=== PATIENT | female | born 1950 | race Caucasian/White ===

== ENCOUNTER 2019-01-25 18:13 | Inpatient (IN) | payer MEDICAID ==
[2019-01-25 18:45] LABS: ADD MAN DIFF? NO
[2019-01-25 18:48] LABS: BASOPHILS % 0.4 % (0.0-2.0); EOSINOPHILS # 0.1 10^3/ul (0.0-0.5); EOSINOPHILS % 1.3 % (0.0-7.0); HEMOGLOBIN 12.1 g/dl (12.0-16.0); LYMPHOCYTES # 3.7 10^3/ul (0.8-2.9); LYMPHOCYTES % 41.4 % (15.0-51.0); MEAN CORPUSCULAR HEMOGLOBIN 30.9 pg (29.0-33.0); MEAN CORPUSCULAR HGB CONC 32.7 g/dl (32.0-37.0); MEAN CORPUSCULAR VOLUME 94.6 fl (82.0-101.0); MONOCYTE # 0.7 10^3/ul (0.3-0.9); MONOCYTES % 7.3 % (0.0-11.0); NEUTROPHIL # 4.4 10^3/ul (1.6-7.5); NEUTROPHILS % 49.4 % (39.0-77.0); PLATELET COUNT 264 10^3/UL (140-415); RED BLOOD COUNT 3.91 10^6/ul (4.20-5.40); RED CELL DISTRIBUTION WIDTH 12.2 % (11.5-14.5)
[2019-01-25] MEDS: KETOROLAC 15 MG INJ IV (18:58)
[2019-01-25] MEDS: DIAZEPAM 10 MG/2 ML SYG IV (18:58)
[2019-01-25 19:05] LABS: ALANINE AMINOTRANSFERASE 34 IU/L (13-69); ALBUMIN 4.9 g/dl (3.3-4.9); ALBUMIN/GLOBULIN RATIO 1.19; ALKALINE PHOSPHATASE 62 IU/L (42-121); ANION GAP 12 (5-13); ASPARTATE AMINO TRANSFERASE 30 IU/L (15-46); BILIRUBIN,INDIRECT 0.5 mg/dl (0-1.1); BILIRUBIN,TOTAL 0.5 mg/dl (0.2-1.3); BLOOD UREA NITROGEN 33 mg/dl (7-20); CALCIUM 10.2 mg/dl (8.4-10.2); CARBON DIOXIDE 26 mmol/L (21-31); CHLORIDE 102 mmol/L (97-110); CREATININE 0.78 mg/dl (0.44-1.00); Estimated GFR > 60 mL/min (>60); GLUCOSE 144 mg/dl (70-220); LIPASE 189 U/L (23-300); POTASSIUM 5.3 mmol/L (3.5-5.1); SODIUM 140 mmol/L (135-144)
[2019-01-25 19:09] LABS: ADD UMIC YES; UR ASCORBIC ACID NEGATIVE (NEGATIVE); UR BILIRUBIN (Dip) NEGATIVE (NEGATIVE); UR BLOOD (Dip) NEGATIVE (NEGATIVE); UR CLARITY SLIGHTLY CLOUDY (CLEAR); UR COLOR YELLOW (YELLOW); UR GLUCOSE (Dip) NEGATIVE (NEGATIVE); UR KETONES (Dip) NEGATIVE (NEGATIVE); UR LEUKOCYTE ESTERASE (Dip) 2+ Leu/ul (NEGATIVE); UR MUCUS FEW /HPF (NONE SEEN); UR NITRITE (Dip) NEGATIVE (NEGATIVE); UR RBC 1 /HPF (0-5); UR SPECIFIC GRAVITY (Dip) 1.023 (1.003-1.030); UR SQUAMOUS EPITHELIAL CELL FEW /HPF (FEW); UR TOTAL PROTEIN (Dip) 1+ mg/dl (NEGATIVE); UR UROBILINOGEN (Dip) NEGATIVE (NEGATIVE); UR WBC 15 /HPF (0-5)
[2019-01-25 19:17] LABS: TROPONIN-I < 0.012 ng/ml (0.000-0.120)
[2019-01-25] MEDS: CEFTRIAXONE 1 GM/50 ML (PMX) 50 ML IVPB (19:42)
[2019-01-25] MEDS: SOD CHLORIDE 0.9% 1,000 ML IV (19:42)
[2019-01-25] MEDS: HYDROmorphONE 0.5 MG/0.5 ML SYG IV (21:17)
[2019-01-25] MEDS ORDERED: ACETAMINOPHEN 325 MG TAB PO (22:30)
[2019-01-25] MEDS ORDERED: ONDANSETRON 4 MG INJ IV ×2 (22:30→23:00)
[2019-01-25] MEDS ORDERED: BISACODYL (EC) 5 MG TAB PO (23:00)
[2019-01-25] MEDS ORDERED: NITROGLYCERIN (SL) 0.4 MG TAB SL (23:00)
[2019-01-25] MEDS ORDERED: NACL 0.9% 3 ML SYG IV (23:00)
[2019-01-25] MEDS: METOCLOPRAMIDE 10 MG INJ IV (23:35)
[2019-01-25 23:40] LABS: D-DIMER 563.92 ng/ml (<460)
[2019-01-25 23:42] LABS: B-TYPE NATRIURETIC PEPTIDE 260 PG/ML (0-125)
[2019-01-26 00:40] LABS: CREATINE KINASE 40 IU/L (23-200)
[2019-01-26 00:53] LABS: CK INDEX 1.4; CK-MB 0.54 ng/ml (0.0-2.4); TROPONIN-I < 0.012 ng/ml (0.000-0.120)
[2019-01-26] MEDS: HYDROmorphONE 1 MG/ML SYG IV ×2 (02:04→18:32)
[2019-01-26] MEDS: CYCLOBENZAPRINE 10 MG TAB PO (03:31)
[2019-01-26] MEDS: ENOXAPARIN 80 MG/0.8 ML SYG SC (03:35)
[2019-01-26] MEDS: CIPROFLOXACIN 250 MG TAB PO ×2 (06:32→18:31)
[2019-01-26] MEDS: PANTOPRAZOLE (EC) 40 MG TAB PO ×2 (06:32→21:01)
[2019-01-26 07:16] LABS: ADD MAN DIFF? NO
[2019-01-26 07:23] LABS: BASOPHIL # 0.1 10^3/ul (0.0-0.1); BASOPHILS % 0.6 % (0.0-2.0); EOSINOPHILS # 0.1 10^3/ul (0.0-0.5); EOSINOPHILS % 1.1 % (0.0-7.0); HEMATOCRIT 36.7 % (37.0-47.0); HEMOGLOBIN 11.8 g/dl (12.0-16.0); LYMPHOCYTES # 2.9 10^3/ul (0.8-2.9); LYMPHOCYTES % 36.5 % (15.0-51.0); MEAN CORPUSCULAR HEMOGLOBIN 30.5 pg (29.0-33.0); MEAN CORPUSCULAR HGB CONC 32.2 g/dl (32.0-37.0); MEAN CORPUSCULAR VOLUME 94.8 fl (82.0-101.0); MEAN PLATELET VOLUME 10.3 fl (7.4-10.4); MONOCYTE # 0.5 10^3/ul (0.3-0.9); MONOCYTES % 6.5 % (0.0-11.0); NEUTROPHIL # 4.3 10^3/ul (1.6-7.5); NEUTROPHILS % 55.2 % (39.0-77.0); PLATELET COUNT 240 10^3/UL (140-415); RED BLOOD COUNT 3.87 10^6/ul (4.20-5.40); RED CELL DISTRIBUTION WIDTH 12.1 % (11.5-14.5)
[2019-01-26 07:23] LABS: WHITE BLOOD COUNT 7.9 10^3/ul (4.8-10.8)
[2019-01-26 07:32] LABS: HEMOGLOBIN A1C 7.1 % (0-5.9)
[2019-01-26 07:41] LABS: ALANINE AMINOTRANSFERASE 32 IU/L (13-69); ALBUMIN 4.4 g/dl (3.3-4.9); ALBUMIN/GLOBULIN RATIO 1.15; ALKALINE PHOSPHATASE 61 IU/L (42-121); ANION GAP 9 (5-13); ASPARTATE AMINO TRANSFERASE 25 IU/L (15-46); BILIRUBIN,INDIRECT 0.5 mg/dl (0-1.1); BILIRUBIN,TOTAL 0.5 mg/dl (0.2-1.3); BLOOD UREA NITROGEN 29 mg/dl (7-20); CALCIUM 9.8 mg/dl (8.4-10.2); CARBON DIOXIDE 31 mmol/L (21-31); CHLORIDE 100 mmol/L (97-110); CHOL/HDL RATIO 4.7 RATIO; CHOLESTEROL 211 mg/dl (100-200); CREATININE 0.65 mg/dl (0.44-1.00); Estimated GFR > 60 mL/min (>60); GLUCOSE 115 mg/dl (70-220); HDL CHOLESTEROL 44 mg/dl (35-98); LDL CHOLESTEROL,CALCULATED 118 mg/dl; MAGNESIUM 1.6 mg/dl (1.7-2.5); SODIUM 140 mmol/L (135-144); TOTAL PROTEIN 8.2 g/dl (6.1-8.1); TRIGLYCERIDES 244 mg/dl (0-149)
[2019-01-26 07:47] LABS: CREATINE KINASE 33 IU/L (23-200)
[2019-01-26 07:52] LABS: C-REACTIVE PROTEIN 0.9 mg/dl (0.0-0.9)
[2019-01-26 07:55] LABS: CK INDEX 1.5; CK-MB 0.49 ng/ml (0.0-2.4); TROPONIN-I < 0.012 ng/ml (0.000-0.120)
[2019-01-26] MEDS: FLUOXETINE 10 MG CAP PO (08:34)
[2019-01-26] MEDS: CLOPIDOGREL 75 MG TAB PO (08:35)
[2019-01-26] MEDS: ASPIRIN (EC) 81 MG TAB PO (08:35)
[2019-01-26] MEDS: AMLODIPINE 10 MG TAB PO (08:35)
[2019-01-26] MEDS ORDERED: ENOXAPARIN 40 MG/0.4 ML SYG SC (09:00)
[2019-01-26 09:42] LABS: ERYTHROCYTE SEDIMENTATION RATE 90 mm/Hr (0-30)
[2019-01-26] MEDS: SOD CHLORIDE 0.9% 100 ML (09:56)
[2019-01-26] MEDS: IOHEXOL 100 ML (09:56)
[2019-01-26] MEDS: MAGNESIUM SULFATE 2 GM/50 ML 50 ML IVPB ×2 (10:22→13:25)
[2019-01-26] MEDS: SUCRALFATE (100 MG/ML) 10ML CUP PO ×2 (18:31→21:01)
[2019-01-26] MEDS ORDERED: ATORVASTATIN 40 MG TAB PO (21:00)
[2019-01-26] MEDS: ACETAMINOPHEN 325 MG TAB PO (21:21)
[2019-01-27] MEDS: HYDROmorphONE 1 MG/ML SYG IV ×3 (03:51→14:27)
[2019-01-27] MEDS: CIPROFLOXACIN 250 MG TAB PO ×2 (05:55→17:34)
[2019-01-27 07:24] LABS: ADD MAN DIFF? NO
[2019-01-27 07:27] LABS: BASOPHILS % 0.5 % (0.0-2.0); EOSINOPHILS # 0.1 10^3/ul (0.0-0.5); EOSINOPHILS % 1.5 % (0.0-7.0); HEMATOCRIT 35.5 % (37.0-47.0); HEMOGLOBIN 11.8 g/dl (12.0-16.0); LYMPHOCYTES # 2.9 10^3/ul (0.8-2.9); LYMPHOCYTES % 35.7 % (15.0-51.0); MEAN CORPUSCULAR HEMOGLOBIN 31.1 pg (29.0-33.0); MEAN CORPUSCULAR HGB CONC 33.2 g/dl (32.0-37.0); MEAN CORPUSCULAR VOLUME 93.4 fl (82.0-101.0); MEAN PLATELET VOLUME 10.2 fl (7.4-10.4); MONOCYTE # 0.5 10^3/ul (0.3-0.9); MONOCYTES % 6.3 % (0.0-11.0); NEUTROPHIL # 4.5 10^3/ul (1.6-7.5); NEUTROPHILS % 55.8 % (39.0-77.0); PLATELET COUNT 236 10^3/UL (140-415); RED CELL DISTRIBUTION WIDTH 11.9 % (11.5-14.5)
[2019-01-27 07:27] LABS: WHITE BLOOD COUNT 8.1 10^3/ul (4.8-10.8)
[2019-01-27 07:58] LABS: MAGNESIUM 1.9 mg/dl (1.7-2.5)
[2019-01-27 07:58] LABS: PHOSPHORUS 5.3 mg/dl (2.5-4.9)
[2019-01-27 08:02] LABS: ANION GAP 10 (5-13); BLOOD UREA NITROGEN 31 mg/dl (7-20); CALCIUM 9.9 mg/dl (8.4-10.2); CARBON DIOXIDE 28 mmol/L (21-31); CHLORIDE 99 mmol/L (97-110); CREATININE 0.72 mg/dl (0.44-1.00); Estimated GFR > 60 mL/min (>60); GLUCOSE 112 mg/dl (70-220); SODIUM 137 mmol/L (135-144)
[2019-01-27] MEDS: SUCRALFATE (100 MG/ML) 10ML CUP PO ×4 (08:10→20:41)
[2019-01-27] MEDS: FLUOXETINE 10 MG CAP PO (08:10)
[2019-01-27] MEDS: ASPIRIN (EC) 81 MG TAB PO (08:10)
[2019-01-27] MEDS: ENOXAPARIN 40 MG/0.4 ML SYG SC (08:10)
[2019-01-27] MEDS: PANTOPRAZOLE (EC) 40 MG TAB PO ×2 (08:11→20:42)
[2019-01-27] MEDS: AMLODIPINE 10 MG TAB PO (08:11)
[2019-01-27] MEDS: CLOPIDOGREL 75 MG TAB PO (08:11)
[2019-01-27] MEDS: SOD CHLORIDE 0.9% 100 ML (16:39)
[2019-01-27] MEDS: IOHEXOL 300MG/ML 150 ML BTL (16:39)
[2019-01-27] MEDS: METOCLOPRAMIDE 10 MG INJ IV (17:34)
[2019-01-27] MEDS: BARIUM SULF 2% 450 ML BTL (BERRY SMOOTHIE) PO (18:41)
[2019-01-28] MEDS: METOCLOPRAMIDE 10 MG INJ IV ×4 (00:29→18:00)
[2019-01-28] MEDS: CIPROFLOXACIN 250 MG TAB PO (05:20)
[2019-01-28 06:53] LABS: ADD MAN DIFF? NO
[2019-01-28 06:57] LABS: BASOPHIL # 0.1 10^3/ul (0.0-0.1); BASOPHILS % 0.9 % (0.0-2.0); EOSINOPHILS # 0.1 10^3/ul (0.0-0.5); EOSINOPHILS % 1.5 % (0.0-7.0); HEMATOCRIT 37.9 % (37.0-47.0); HEMOGLOBIN 12.4 g/dl (12.0-16.0); LYMPHOCYTES # 3.6 10^3/ul (0.8-2.9); LYMPHOCYTES % 45.5 % (15.0-51.0); MEAN CORPUSCULAR HEMOGLOBIN 30.5 pg (29.0-33.0); MEAN CORPUSCULAR HGB CONC 32.7 g/dl (32.0-37.0); MEAN CORPUSCULAR VOLUME 93.3 fl (82.0-101.0); MEAN PLATELET VOLUME 10.3 fl (7.4-10.4); MONOCYTE # 0.6 10^3/ul (0.3-0.9); MONOCYTES % 7.6 % (0.0-11.0); NEUTROPHIL # 3.5 10^3/ul (1.6-7.5); NEUTROPHILS % 44.2 % (39.0-77.0); PLATELET COUNT 269 10^3/UL (140-415); RED BLOOD COUNT 4.06 10^6/ul (4.20-5.40); RED CELL DISTRIBUTION WIDTH 11.9 % (11.5-14.5)
[2019-01-28 06:57] LABS: WHITE BLOOD COUNT 7.9 10^3/ul (4.8-10.8)
[2019-01-28 07:18] LABS: ALANINE AMINOTRANSFERASE 37 IU/L (13-69); ALBUMIN 4.3 g/dl (3.3-4.9); ALKALINE PHOSPHATASE 61 IU/L (42-121); ASPARTATE AMINO TRANSFERASE 30 IU/L (15-46); BILIRUBIN,INDIRECT 0.4 mg/dl (0-1.1); BILIRUBIN,TOTAL 0.4 mg/dl (0.2-1.3); TOTAL PROTEIN 8.3 g/dl (6.1-8.1)
[2019-01-28 07:19] LABS: PHOSPHORUS 5.1 mg/dl (2.5-4.9)
[2019-01-28 07:19] LABS: MAGNESIUM 1.8 mg/dl (1.7-2.5)
[2019-01-28 07:21] LABS: ANION GAP 12 (5-13); BLOOD UREA NITROGEN 29 mg/dl (7-20); CALCIUM 10.1 mg/dl (8.4-10.2); CARBON DIOXIDE 29 mmol/L (21-31); CHLORIDE 98 mmol/L (97-110); CREATININE 0.81 mg/dl (0.44-1.00); Estimated GFR > 60 mL/min (>60); GLUCOSE 147 mg/dl (70-220); POTASSIUM 4.7 mmol/L (3.5-5.1); SODIUM 139 mmol/L (135-144)
[2019-01-28] MEDS: POLYETHYLENE GLYCOL 17 GM PACKET PO (08:18)
[2019-01-28] MEDS: CLOPIDOGREL 75 MG TAB PO (08:19)
[2019-01-28] MEDS: SUCRALFATE (100 MG/ML) 10ML CUP PO ×4 (08:19→19:58)
[2019-01-28] MEDS: ASPIRIN (EC) 81 MG TAB PO (08:19)
[2019-01-28] MEDS: AMLODIPINE 10 MG TAB PO (08:19)
[2019-01-28] MEDS: FLUOXETINE 10 MG CAP PO (08:19)
[2019-01-28] MEDS: PANTOPRAZOLE (EC) 40 MG TAB PO ×2 (08:19→19:58)
[2019-01-28] MEDS: morphine 2 MG INJ IV (08:33)
[2019-01-28] MEDS: ENOXAPARIN 40 MG/0.4 ML SYG SC (09:00)
[2019-01-28] MEDS: HYDROmorphONE 1 MG/ML SYG IV (13:43)
[2019-01-28] MEDS: metFORMIN 500 MG TAB PO (18:19)
[2019-01-28] MEDS: LORAZEPAM 2 MG INJ IV (22:06)
[2019-01-29] MEDS: DOCUSATE SODIUM 100 MG CAP PO (05:27)
[2019-01-29 06:30] LABS: ADD MAN DIFF? NO
[2019-01-29 06:33] LABS: WHITE BLOOD COUNT 6.9 10^3/ul (4.8-10.8)
[2019-01-29 06:33] LABS: BASOPHIL # 0.1 10^3/ul (0.0-0.1); BASOPHILS % 0.7 % (0.0-2.0); EOSINOPHILS # 0.1 10^3/ul (0.0-0.5); EOSINOPHILS % 1.9 % (0.0-7.0); HEMATOCRIT 37.3 % (37.0-47.0); HEMOGLOBIN 12.2 g/dl (12.0-16.0); LYMPHOCYTES # 2.7 10^3/ul (0.8-2.9); LYMPHOCYTES % 39.4 % (15.0-51.0); MEAN CORPUSCULAR HEMOGLOBIN 30.7 pg (29.0-33.0); MEAN CORPUSCULAR HGB CONC 32.7 g/dl (32.0-37.0); MEAN CORPUSCULAR VOLUME 93.7 fl (82.0-101.0); MEAN PLATELET VOLUME 9.9 fl (7.4-10.4); MONOCYTE # 0.6 10^3/ul (0.3-0.9); MONOCYTES % 8.6 % (0.0-11.0); NEUTROPHIL # 3.4 10^3/ul (1.6-7.5); NEUTROPHILS % 49.3 % (39.0-77.0); PLATELET COUNT 242 10^3/UL (140-415); RED BLOOD COUNT 3.98 10^6/ul (4.20-5.40)
[2019-01-29 06:57] LABS: MAGNESIUM 1.8 mg/dl (1.7-2.5)
[2019-01-29 06:57] LABS: PHOSPHORUS 4.4 mg/dl (2.5-4.9)
[2019-01-29 06:58] LABS: ANION GAP 11 (5-13); BLOOD UREA NITROGEN 29 mg/dl (7-20); CALCIUM 10.1 mg/dl (8.4-10.2); CARBON DIOXIDE 29 mmol/L (21-31); CHLORIDE 99 mmol/L (97-110); CREATININE 0.89 mg/dl (0.44-1.00); Estimated GFR > 60 mL/min (>60); GLUCOSE 157 mg/dl (70-220); POTASSIUM 4.6 mmol/L (3.5-5.1); SODIUM 139 mmol/L (135-144)
[2019-01-29] MEDS: ASPIRIN (EC) 81 MG TAB PO (09:14)
[2019-01-29] MEDS: CLOPIDOGREL 75 MG TAB PO (09:14)
[2019-01-29] MEDS: PANTOPRAZOLE (EC) 40 MG TAB PO ×2 (09:16→20:29)
[2019-01-29] MEDS: POLYETHYLENE GLYCOL 17 GM PACKET PO (09:16)
[2019-01-29] MEDS: FLUOXETINE 10 MG CAP PO (09:16)
[2019-01-29] MEDS: ENOXAPARIN 40 MG/0.4 ML SYG SC (09:26)
[2019-01-29] MEDS: AMLODIPINE 10 MG TAB PO (09:27)
[2019-01-29] MEDS: metFORMIN 500 MG TAB PO ×2 (10:47→17:37)
[2019-01-29] MEDS: SUCRALFATE (100 MG/ML) 10ML CUP PO ×5 (10:48→20:29)
[2019-01-29] MEDS: HYDROmorphONE 1 MG/ML SYG IV ×2 (10:53→16:22)
[2019-01-29] MEDS: IOHEXOL 100 ML (20:05)
[2019-01-29] MEDS: SOD CHLORIDE 0.9% 100 ML (20:05)
[2019-01-29] MEDS: ACETAMINOPHEN 325 MG TAB PO (20:29)
[2019-01-30] MEDS: FLUOXETINE 10 MG CAP PO (08:52)
[2019-01-30] MEDS: CLOPIDOGREL 75 MG TAB PO (08:52)
[2019-01-30] MEDS: ASPIRIN (EC) 81 MG TAB PO (08:52)
[2019-01-30] MEDS: PANTOPRAZOLE (EC) 40 MG TAB PO ×2 (08:53→21:09)
[2019-01-30] MEDS: AMLODIPINE 10 MG TAB PO (08:53)
[2019-01-30] MEDS: SUCRALFATE (100 MG/ML) 10ML CUP PO ×6 (08:55→21:09)
[2019-01-30] MEDS: metFORMIN 500 MG TAB PO ×4 (08:57→17:37)
[2019-01-30] MEDS: ENOXAPARIN 40 MG/0.4 ML SYG SC (08:58)
[2019-01-30] MEDS: POLYETHYLENE GLYCOL 17 GM PACKET PO (08:59)
[2019-01-30] MEDS: HYOSCYAMINE 0.125 MG SUBL TAB PO ×3 (17:34→21:11)
[2019-01-30] MEDS: ACETAMINOPHEN 325 MG TAB PO (21:09)
[2019-01-30] MEDS: LORAZEPAM 2 MG INJ IV (23:03)
[2019-01-31] MEDS: HYOSCYAMINE 0.125 MG SUBL TAB PO ×3 (05:33→21:30)
[2019-01-31 07:32] LABS: ADD MAN DIFF? NO
[2019-01-31 07:48] LABS: WHITE BLOOD COUNT 6.7 10^3/ul (4.8-10.8)
[2019-01-31 07:48] LABS: BASOPHIL # 0.1 10^3/ul (0.0-0.1); BASOPHILS % 0.7 % (0.0-2.0); EOSINOPHILS # 0.2 10^3/ul (0.0-0.5); EOSINOPHILS % 2.5 % (0.0-7.0); HEMATOCRIT 36.2 % (37.0-47.0); LYMPHOCYTES # 2.8 10^3/ul (0.8-2.9); MEAN CORPUSCULAR HEMOGLOBIN 31.1 pg (29.0-33.0); MEAN CORPUSCULAR HGB CONC 33.1 g/dl (32.0-37.0); MEAN CORPUSCULAR VOLUME 93.8 fl (82.0-101.0); MEAN PLATELET VOLUME 10.7 fl (7.4-10.4); MONOCYTE # 0.6 10^3/ul (0.3-0.9); MONOCYTES % 9.6 % (0.0-11.0); NEUTROPHIL # 3.1 10^3/ul (1.6-7.5); NEUTROPHILS % 46.1 % (39.0-77.0); PLATELET COUNT 249 10^3/UL (140-415); RED BLOOD COUNT 3.86 10^6/ul (4.20-5.40)
[2019-01-31] MEDS: metFORMIN 500 MG TAB PO ×2 (08:00→18:10)
[2019-01-31 08:03] LABS: PHOSPHORUS 4.2 mg/dl (2.5-4.9)
[2019-01-31 08:03] LABS: MAGNESIUM 1.8 mg/dl (1.7-2.5)
[2019-01-31 08:13] LABS: ANION GAP 11 (5-13); BLOOD UREA NITROGEN 29 mg/dl (7-20); CARBON DIOXIDE 27 mmol/L (21-31); CHLORIDE 100 mmol/L (97-110); CREATININE 0.88 mg/dl (0.44-1.00); Estimated GFR > 60 mL/min (>60); GLUCOSE 120 mg/dl (70-220); POTASSIUM 4.5 mmol/L (3.5-5.1); SODIUM 138 mmol/L (135-144)
[2019-01-31] MEDS: SUCRALFATE (100 MG/ML) 10ML CUP PO ×5 (08:45→20:38)
[2019-01-31] MEDS: CLOPIDOGREL 75 MG TAB PO (08:45)
[2019-01-31] MEDS: FLUOXETINE 10 MG CAP PO (08:46)
[2019-01-31] MEDS: PANTOPRAZOLE (EC) 40 MG TAB PO ×2 (08:46→20:37)
[2019-01-31] MEDS: ASPIRIN (EC) 81 MG TAB PO (08:46)
[2019-01-31] MEDS: AMLODIPINE 10 MG TAB PO (08:46)
[2019-01-31] MEDS: POLYETHYLENE GLYCOL 17 GM PACKET PO (08:47)
[2019-01-31] MEDS: ENOXAPARIN 40 MG/0.4 ML SYG SC (08:47)
[2019-01-31] MEDS: HYDROmorphONE 1 MG/ML SYG IV ×2 (08:54→21:31)
[2019-01-31] MEDS: ACETAMINOPHEN 325 MG TAB PO (16:55)
[2019-01-31 19:12] LABS: VARICELLA-ZOSTER VIRUS AB IgM 0.35
[2019-02-01] MEDS: HYOSCYAMINE 0.125 MG SUBL TAB PO ×3 (05:36→20:43)
[2019-02-01] MEDS: FLUOXETINE 10 MG CAP PO (08:56)
[2019-02-01] MEDS: ASPIRIN (EC) 81 MG TAB PO (08:56)
[2019-02-01] MEDS: CLOPIDOGREL 75 MG TAB PO (08:56)
[2019-02-01] MEDS: metFORMIN 500 MG TAB PO ×2 (08:56→17:30)
[2019-02-01] MEDS: HYDROmorphONE 1 MG/ML SYG IV (08:57)
[2019-02-01] MEDS: PANTOPRAZOLE (EC) 40 MG TAB PO ×2 (08:57→20:43)
[2019-02-01] MEDS: ENOXAPARIN 40 MG/0.4 ML SYG SC (08:58)
[2019-02-01] MEDS: SUCRALFATE (100 MG/ML) 10ML CUP PO ×4 (08:59→20:43)
[2019-02-01] MEDS: POLYETHYLENE GLYCOL 17 GM PACKET PO (09:00)
[2019-02-01] MEDS: AMLODIPINE 10 MG TAB PO (09:00)
[2019-02-01 12:40] LABS: ALANINE AMINOTRANSFERASE 43 IU/L (13-69); ALBUMIN 4.9 g/dl (3.3-4.9); ALBUMIN/GLOBULIN RATIO 1.19; ALKALINE PHOSPHATASE 73 IU/L (42-121); ANION GAP 16 (5-13); ASPARTATE AMINO TRANSFERASE 34 IU/L (15-46); BILIRUBIN,INDIRECT 0.5 mg/dl (0-1.1); BILIRUBIN,TOTAL 0.5 mg/dl (0.2-1.3); BLOOD UREA NITROGEN 28 mg/dl (7-20); CALCIUM 10.4 mg/dl (8.4-10.2); CARBON DIOXIDE 23 mmol/L (21-31); CHLORIDE 99 mmol/L (97-110); CREATININE 1.05 mg/dl (0.44-1.00); Estimated GFR 52 mL/min (>60); GLUCOSE 187 mg/dl (70-220); POTASSIUM 5.1 mmol/L (3.5-5.1); SODIUM 138 mmol/L (135-144)
[2019-02-01] MEDS: GABAPENTIN 100 MG CAP PO ×2 (13:59→20:43)
[2019-02-01] MEDS: ACETAMINOPHEN 1000MG/100ML IV 100 ML IVPB (20:43)
[2019-02-02] MEDS: ACETAMINOPHEN 1000MG/100ML IV 100 ML IVPB ×2 (02:55→08:57)
[2019-02-02 05:37] LABS: ADD MAN DIFF? NO
[2019-02-02 05:46] LABS: BASOPHIL # 0.1 10^3/ul (0.0-0.1); BASOPHILS % 0.8 % (0.0-2.0); EOSINOPHILS # 0.2 10^3/ul (0.0-0.5); EOSINOPHILS % 2.3 % (0.0-7.0); HEMOGLOBIN 11.5 g/dl (12.0-16.0); LYMPHOCYTES # 2.8 10^3/ul (0.8-2.9); MEAN CORPUSCULAR HEMOGLOBIN 30.5 pg (29.0-33.0); MEAN CORPUSCULAR HGB CONC 32.9 g/dl (32.0-37.0); MEAN CORPUSCULAR VOLUME 92.8 fl (82.0-101.0); MONOCYTE # 0.8 10^3/ul (0.3-0.9); MONOCYTES % 9.9 % (0.0-11.0); NEUTROPHIL # 4.1 10^3/ul (1.6-7.5); NEUTROPHILS % 51.7 % (39.0-77.0); PLATELET COUNT 246 10^3/UL (140-415); RED BLOOD COUNT 3.77 10^6/ul (4.20-5.40); RED CELL DISTRIBUTION WIDTH 12.1 % (11.5-14.5)
[2019-02-02 05:46] LABS: WHITE BLOOD COUNT 7.9 10^3/ul (4.8-10.8)
[2019-02-02 06:00] LABS: ALANINE AMINOTRANSFERASE 35 IU/L (13-69); ALBUMIN 4.3 g/dl (3.3-4.9); ALBUMIN/GLOBULIN RATIO 1.22; ALKALINE PHOSPHATASE 56 IU/L (42-121); ANION GAP 10 (5-13); ASPARTATE AMINO TRANSFERASE 28 IU/L (15-46); BILIRUBIN,INDIRECT 0.5 mg/dl (0-1.1); BILIRUBIN,TOTAL 0.5 mg/dl (0.2-1.3); BLOOD UREA NITROGEN 28 mg/dl (7-20); CALCIUM 9.8 mg/dl (8.4-10.2); CARBON DIOXIDE 25 mmol/L (21-31); CHLORIDE 100 mmol/L (97-110); CREATININE 1.14 mg/dl (0.44-1.00); Estimated GFR 48 mL/min (>60); GLUCOSE 129 mg/dl (70-220); SODIUM 135 mmol/L (135-144); TOTAL PROTEIN 7.8 g/dl (6.1-8.1)
[2019-02-02] MEDS: HYOSCYAMINE 0.125 MG SUBL TAB PO (06:22)
[2019-02-02] MEDS: metFORMIN 500 MG TAB PO (08:39)
[2019-02-02] MEDS: CLOPIDOGREL 75 MG TAB PO (08:40)
[2019-02-02] MEDS: AMLODIPINE 10 MG TAB PO (08:40)
[2019-02-02] MEDS: FLUOXETINE 10 MG CAP PO (08:40)
[2019-02-02] MEDS: PANTOPRAZOLE (EC) 40 MG TAB PO (08:40)
[2019-02-02] MEDS: ASPIRIN (EC) 81 MG TAB PO (08:40)
[2019-02-02] MEDS: GABAPENTIN 100 MG CAP PO (08:40)
[2019-02-02] MEDS: ENOXAPARIN 40 MG/0.4 ML SYG SC (08:55)
[2019-02-02] MEDS: SUCRALFATE (100 MG/ML) 10ML CUP PO (08:58)
[2019-02-02] MEDS: POLYETHYLENE GLYCOL 17 GM PACKET PO (08:59)
== END 2019-02-02 13:40 | disposition home or self-care (01) | DRG 313 ==
LOC: TEL 22:20 → 2NE 01-29 15:35 → E/R 18:13 → 2NE 01-29 15:59
PROC: 0DB68ZX Excision of Stomach, Via Natural or Artificial Opening Endoscopic, Diagnostic (ICD-10-PCS; principal; 2019-01-31 11:05)
DX: R07.9 Chest pain, unspecified (principal); N39.0 Urinary tract infection, site not specified; R10.11 Right upper quadrant pain; E11.8 Type 2 diabetes mellitus with unspecified complications; I10 Essential (primary) hypertension; E66.9 Obesity, unspecified; Z68.35 Body mass index [BMI] 35.0-35.9, adult; E78.5 Hyperlipidemia, unspecified; I27.20 Pulmonary hypertension, unspecified; K44.9 Diaphragmatic hernia without obstruction or gangrene; Z95.0 Presence of cardiac pacemaker; R00.2 Palpitations; R29.810 Facial weakness; M54.2 Cervicalgia; K80.20 Calculus of gallbladder without cholecystitis without obstruction; K27.9 Peptic ulcer, site unspecified, unspecified as acute or chronic, without hemorrhage or perforation; R51 Headache; I07.1 Rheumatic tricuspid insufficiency
CPT/HCPCS: 36415; 70496; 70498; 71045; 71275; 72125; 72128; 74018; 74177; 76705; 78226; 80048; 80053; 80061; 80076; 81001; 82550; 82553; 82962; 83036; 83690; 83735; 83880; 84100; 84443; 84484; 85025; 85378; 85651; 86140; 87086; 88305; 88312; 93005; 93306; 93970; 96365; 96366; 96375; 97110; 97116; 97162; 97530; 99285-25